=== PATIENT | female | born 1970 | race Caucasian/White ===

== ENCOUNTER 2019-07-14 06:03 | Day surgery (SDC) | payer BC ==
[2019-07-14] MEDS: RINGERS SOLUTION,LACTATED 1,000 ML IV ONE (06:39)
[2019-07-14] MEDS: DEXAMETHASONE PRESERVATIVE FREE 10MG/ML VIAL IM ONE (07:52)
[2019-07-14] MEDS: BUPIVACAINE 0.5% W/EPI MPF 30 ML VIAL SQ ONE (07:52)
[2019-07-14] MEDS: BUPIVACAINE 0.5% (5MG/ML) PF 30ML VIAL IM ONE (07:52)
[2019-07-14] MEDS: LIDOCAINE 1% W/EPI 1:200,000 MPF 30ML SQ ONE (07:52)
--- NOTE | 2019-07-15 07:47 | Operative Note - [place] ---
DATE OF SURGERY: 07/14/2019 PREOPERATIVE DIAGNOSIS: CERVICAL SPONDYLOSIS WITHOUT MYELOPATHY, ICD-10 CODE M47.812. OPERATION: FLUOROSCOPICALLY GUIDED INFILTRATION BLOCK BILATERAL CERVICAL FACETS C3-C4, C4- C5, AND C5-C6. SURGEON: Dilan Antony D.O. INDICATION: This patient presents with pain which is neck. Examination within the cervical spine. Range of motion does cause pain in the neck with extension. Diagnostics show osteophytic spur formation diffuse multiple level cervical spine. PROCEDURE: Intravenous line, vital sign monitoring, IV sedation, prepped and draped, sterile technique. The primary pain is neck. Under imaging with the patient prone sterile prep, sterile technique. The skin at C3-C4, C4-C5 and C5- C6 facets bilaterally marked and infiltrated a 22-gauge needle into the facet, 1 ml of 0.5 Marcaine with dexamethasone was injected into each of the sites bilaterally. The areas were cleaned, topical antibiotic, and sterile dressing was applied. Will monitor and evaluate. JOB NUMBER: [id number] MTDD
== END 2019-07-14 08:20 | disposition home or self-care (01) ==
LOC: SUR 06:03
PROVIDERS: ATTEND Pain Medicine Interventional Pain Medicine
DX: M47.812 Spondylosis without myelopathy or radiculopathy, cervical region (principal); I10 Essential (primary) hypertension
CPT/HCPCS: 81025; J7120